=== PATIENT | male | born 1945 | race Caucasian/White ===

== ENCOUNTER 2025-11-13 05:49 | Day surgery (SDC) | payer MEDICARE, OTHER, SELFPAY ==
--- NOTE | 2025-10-12 14:33 | CM ---
Patient stated that he is going to [facility] surgery center in [place].
[2025-11-13] VITALS (10 sets, daily range): BP systolic 135–177; BP diastolic 80–108; BMI 21.7
[2025-11-13] MEDS: CELEBREX 200 MG PO (06:21)
[2025-11-13] MEDS: TYLENOL 1000 MG PO (06:21)
[2025-11-13] MEDS: NORMOSOL-R/PLASMALYTE-A 1000 IV (06:42)
--- NOTE | 2025-11-13 08:02 | W.DS.TRANS ---
DC Summary - [facility]
-
Discharge Instructions:
Sleep Apnea Risk Intermediate
Discharge Diagnosis/Procedures R Reverse TSA Dr Thomson 11/13/25
Diet As tolerated
Activity No strenuous activity
Additional Activity d/c Cefadroxil and replace w/ Doxycycline
Driving Restrictions No driving
Instructions:
Stand-Alone Forms: SDS Total Shoulder D/C Inst.
Changes to Home Medications: Yes
Discharge Medications:
DC Medications w/original date entered in [facility]
amlodipine 5 mg tablet 5 mg PO DAILY 01/22/23
atorvastatin 20 mg tablet 20 mg PO QPM 01/22/23
Saccharomyces boulardii 250 mg capsule (Florastor) 250 mg PO BID #1 cap 11/13/25
acetaminophen 500 mg tablet (Tylenol Extra Strength) 1,000 mg (2 x 500 mg) PO QID #1 tab 11/13/25
aspirin 325 mg tablet 325 mg PO DAILY blood clot prevention #1 tab 11/13/25
celecoxib 200 mg capsule 200 mg PO DAILY Anti-inflammatory #14 caps 11/13/25
dexamethasone 4 mg tablet 4 mg PO BID inflammation #6 tabs 11/13/25
docusate sodium 100 mg capsule (Colace) 100 mg PO BID stool softner #1 cap 11/13/25
doxycycline hyclate 100 mg capsule 100 mg PO BID infection prevention #10 caps 11/13/25
gabapentin 300 mg capsule 300 mg PO HS sleep/pain #10 caps 11/13/25
magnesium hydroxide 400 mg/5 mL oral suspension (Milk of Magnesia) 30 ml PO HS PRN constipation #1 mL 11/13/25
omeprazole 20 mg capsule,delayed release 20 mg PO DAILY GERD #0 caps 11/13/25
ondansetron 4 mg disintegrating tablet 4 mg PO Q6H PRN n/v #20 tabs 11/13/25
oxycodone 5 mg tablet 5 mg PO Q6H PRN 1 tab moderate pain, 2 tabs severe pain #30 tabs 11/13/25
sennosides 8.6 mg tablet (Senokot) 17.2 mg (2 x 8.6 mg) PO BID laxative #2 tabs 11/13/25
Home Medication Changes
aspirin 325 mg tablet 325 mg PO DAILY blood clot prevention #1 tab 11/13/25
celecoxib 200 mg capsule 200 mg PO DAILY Anti-inflammatory #14 caps 11/13/25
dexamethasone 4 mg tablet 4 mg PO BID inflammation #6 tabs 11/13/25
docusate sodium 100 mg capsule (Colace) 100 mg PO BID stool softner #1 cap 11/13/25
doxycycline hyclate 100 mg capsule 100 mg PO BID infection prevention #10 caps 11/13/25
gabapentin 300 mg capsule 300 mg PO HS sleep/pain #10 caps 11/13/25
magnesium hydroxide 400 mg/5 mL oral suspension (Milk of Magnesia) 30 ml PO HS PRN constipation #1 mL 11/13/25
omeprazole 20 mg capsule,delayed release 20 mg PO DAILY GERD #0 caps 11/13/25
ondansetron 4 mg disintegrating tablet 4 mg PO Q6H PRN n/v #20 tabs 11/13/25
oxycodone 5 mg tablet 5 mg PO Q6H PRN 1 tab moderate pain, 2 tabs severe pain #30 tabs 11/13/25
sennosides 8.6 mg tablet (Senokot) 17.2 mg (2 x 8.6 mg) PO BID laxative #2 tabs 11/13/25
Pending Results: No
[2025-11-13 08:51] LABS: Glycohemoglobin (HgbA1c) 6.1 % (4.0-5.9)
[2025-11-13] MEDS: ANCEF 5 IV (11:18)
== END 2025-11-13 11:27 | disposition home or self-care (01) ==
LOC: SDS 05:49
PROVIDERS: ATTENDING PHYSICIAN Orthopaedic Surgery Hand Surgery
DX: S46.011A Strain of muscle(s) and tendon(s) of the rotator cuff of right shoulder, initial encounter (principal); X58.XXXA Exposure to other specified factors, initial encounter; M19.011 Primary osteoarthritis, right shoulder; Z96.611 Presence of right artificial shoulder joint
CPT/HCPCS: 23472; C1776; 73020; 83036; 87070